=== PATIENT | male | born 1965 | race African-American/Black ===

== ENCOUNTER 2022-11-09 12:59 | Emergency (ER) | payer OTHER ==
[~2022-11-09] VITALS: Ht 182.9 cm; Wt 90.0 kg
[2022-11-09 13:11] VITALS: BP 133/85; PULSE 76; RESP 20; TEMP 98.5; O2SAT 99
[2022-11-09] MEDS ORDERED: TUSSL MT (14:48)
[2022-11-09] MEDS ORDERED: ERYT1OIN6 EACHEYE (14:51)
== END 2022-11-09 15:22 | disposition home or self-care (01) ==
LOC: ER 14:17
DX: J20.9 Acute bronchitis, unspecified (principal); H10.9 Unspecified conjunctivitis
CPT/HCPCS: 71045; 99283

== ENCOUNTER 2023-07-05 11:54 | Emergency (ER) | payer OTHER ==
[~2023-07-05] VITALS: Ht 188 cm; Wt 97.5 kg
[~2023-07-05 11:54] MED LIST: ERYT1OIN6 EACHEYE; TUSSL MT
[2023-07-05 12:07] VITALS: O2SAT 100
[2023-07-05] MEDS ORDERED: LORA10TA64 MT (13:51)
[2023-07-05] MEDS ORDERED: AMOX1TAB16 MT (13:51)
[2023-07-05 14:30] VITALS: BP 144/75; PULSE 53; RESP 16; TEMP 98
== END 2023-07-05 14:42 | disposition home or self-care (01) ==
LOC: ER 13:45
DX: H02.841 Edema of right upper eyelid (principal)
CPT/HCPCS: 99283